=== PATIENT | female | born 1985 | race Caucasian/White ===

== ENCOUNTER 2016-04-19 13:02 | Emergency (ER) | payer OTHER ==
[~2016-04-19 13:02] MED LIST: ADVAIR; ALBUTEROL17 GM; ALBUTEROL17 GM INH; AMERGE1 MG PO; ANTIDEPRESSANT MED PO; BACTRIM DS TABL1 TA1 PO; BACTROBAN15 GM TOP; BENADRYL PO; BENTYL10 MG PO; BENTYL20 MG PO; BUTALB-ACETAMI1 EACH PO; CIPRO PO; COREG3.125 MG PO; DICLOFENAC EC; DIURETIC; FLONASE16 GM; HYDROCHLOROTH12.5 M1 PO; HYDROCHLOROTH12.5 MG PO; IBUPROFEN800 MG PO; KCL PO; KEFLEX PO; LEVOTHYROXINE75 MCG PO; LEVOXYL75 MC1 PO; LEXAPRO20 MG PO; LISINOPRIL-HCTZ1 T15 PO; LOESTRIN FE 1-21 TAB PO; LOTREL 5/101 CAP PO; LYRICA PO; NARATRIPTAN2.5 MG PO; OMEPRAZOLE40 M1 PO; ORTHO TRI-7 DAYSX 3; PEPCID PO; PHENERGAN DM1 ML PO; PREDNISONE PO; PROVENTIL0.83 MG/ML INH; REGLAN10 MG PO; SINGULAIR; SYMBICORT80; SYNTHROID; SYNTHROID75 MCG PO; TRAMADOL HCL50 M2; TYLOX 5-500 CA1 EACH PO; VENLAFAXINE HCL75 M1 PO; VICODIN PO; VOLTAREN50 MG PO; ZITHROMAX PO; ZOFRAN PO; ZOLOFT100 MG PO; [UNRECOGNIZED DRUG - OTHER] PO; [UNRECOGNIZED DRUG - OTHER] PO
== END 2016-04-19 14:19 | disposition home or self-care (01) ==
LOC: SED 13:02
DX: G43.909 Migraine, unspecified, not intractable, without status migrainosus (principal); F32.9 Major depressive disorder, single episode, unspecified; F41.9 Anxiety disorder, unspecified; I10 Essential (primary) hypertension; Z90.49 Acquired absence of other specified parts of digestive tract; Z88.0 Allergy status to penicillin; Z88.8 Allergy status to other drugs, medicaments and biological substances; Z79.899 Other long term (current) drug therapy
CPT/HCPCS: 96372; 99283; J1885

== ENCOUNTER 2016-07-24 06:59 | Emergency (ER) | payer OTHER | END 2016-07-24 08:21 | disposition home or self-care (01) | LOC: SED 06:59 | DX: J20.9 Acute bronchitis, unspecified (principal); I10 Essential (primary) hypertension; J45.909 Unspecified asthma, uncomplicated; F41.9 Anxiety disorder, unspecified; Z88.0 Allergy status to penicillin; Z88.1 Allergy status to other antibiotic agents; Z91.012 Allergy to eggs; Z88.8 Allergy status to other drugs, medicaments and biological substances; Z79.899 Other long term (current) drug therapy | CPT/HCPCS: 94640; 99283 ==

== ENCOUNTER → 2016-10-26 | Outpatient (CLI) | payer OTHER ==
--- NOTE | ~2016-10-26 | US128 ---
[id number] [address] [address] [id number] O MR#: [id number] Acc #: [id number] NAME: KATTY ALEMAN : 1985 SEX: F STUDY DATE/TIME: 10/26/2016 15:16 UNIT: [facility] ROOM: STUDY DESCRIPTION: Thyroid Attending Physician: Rodolfo Mathur M.D. Referring Physician: Rodolfo Mathur M.D. Ordering Physician: Rodolfo Mathur M.D. Primary Care Physician: Rodolfo Mathur M.D. MEDICAL IMAGING REPORT This report is preliminary unless electronic signature is present. EXAM Thyroid ultrasound. INDICATIONS Hypothyroidism. Goiter. Multinodular thyroid. COMPARISON Thyroid ultrasound, 05/19/2012. FINDINGS The right lobe of the thyroid measures 4.8 x 2.2 x 2.2 cm. The left lobe of the thyroid measures 5 x 2.3 x 2.1 cm. The isthmus measures 0.8 cm in thickness. There is an index nodule in the inferior left thyroid measuring 1.6 meters. This is unchanged from at least 2018 and considered benign. IMPRESSION 1. Benign thyroid ultrasound. 2. 1.6 cm thyroid nodule is unchanged from at least 2008. Dictated by... Adolfo Mederos M.D. THIS IS AN ELECTRONICALLY VERIFIED REPORT Adolfo Mederos M.D. at 10/28/2016 1:26 PM RICHMOND/shahriar TD: 10/28/2016 08:27 JOB #: [id number] MEDICAL IMAGING REPORT Page 1 of 1
== END | disposition home or self-care (01) ==
LOC: SGUS 10:00
DX: E04.9 Nontoxic goiter, unspecified (principal); E03.9 Hypothyroidism, unspecified; E04.1 Nontoxic single thyroid nodule
CPT/HCPCS: 76536